=== PATIENT | female | born 1940 ===

== ENCOUNTER → 2017-12-25 13:13 | Outpatient (REF) | payer MEDICARE, SELFPAY ==
[2017-12-25 14:02] LABS: BUN Creatinine Ratio 27.5 (6-22); Blood Urea Nitrogen 66 mg/dL (7-17); Calcium 8.7 mg/dL (8.4-10.2); Carbon Dioxide 30 mmol/L (22-32); Chloride 102 mmol/L (98-107); Estimated Glomerular Filt Rate 19.5 mL/min (>60); Glucose 121 mg/dL (80-110); HEMOLYSIS 18 (0-50); Potassium 4.1 mmol/L (3.4-5.1); Sodium 143 mmol/L (137-145)
== END ==
LOC: LAB 13:13
PROVIDERS: Visit Provider Specialist
DX: N18.4 Chronic kidney disease, stage 4 (severe) (principal); D63.1 Anemia in chronic kidney disease
CPT/HCPCS: 80048

== ENCOUNTER → 2018-03-31 15:26 | Outpatient (REF) | payer MEDICARE, SELFPAY ==
[2018-03-31 16:18] LABS: Add Manual Diff / Slide Review NO; Basophils Percent Auto 0.5 % (0-2); Eosinophils Percent Auto 5.1 % (2-4); Hematocrit 27.2 % (36-46); Hemoglobin 8.7 g/dL (12.0-16.0); Lymphocytes Percent Auto 25.9 % (25-40); Mean Corpuscular HGB Conc 32.1 % (30-36); Mean Corpuscular Hemoglobin 29.5 PG (26-34); Mean Corpuscular Volume 91.7 fL (80-100); Monocytes Percent Auto 7.6 % (3-14); Neutrophils Absolute Auto 3200 /uL (3000-5900); Neutrophils Percent Auto 60.9 % (50-75); Platelet Count 220 X10^3/uL (150-400); Red Blood Cell Count 2.96 X10^6/uL (4.0-5.2); Red Cell Distribution Width 18.5 % (11.6-14.8); White Blood Cell Count 5.2 X10^3/uL (4.5-11.0)
[2018-03-31 16:45] LABS: HEMOLYSIS < 15 (0-50); Iron 51 ug/dL (37-170)
[2018-03-31 16:52] LABS: Alanine Aminotransferase 31 IU/L (9-52); Albumin 3.7 g/dL (3.5-5.0); Albumin Globulin Ratio 1.4 (1.0-2.8); Alkaline Phosphatase 89 U/L (38-126); Aspartate Aminotransferase 40 IU/L (14-36); BUN Creatinine Ratio 27.8 (6-22); Bilirubin Total 0.6 mg/dL (0.2-1.3); Blood Urea Nitrogen 64 mg/dL (7-17); C-Reactive Protein Quant 0.6 mg/dL (<1.0); Calcium 8.5 mg/dL (8.4-10.2); Carbon Dioxide 24 mmol/L (22-32); Chloride 105 mmol/L (98-107); Estimated Glomerular Filt Rate 20.5 mL/min (>60); Globulin 2.6 g/dL (1.7-4.1); Glucose 151 mg/dL (80-110); HEMOLYSIS < 15 (0-50); Potassium 4.2 mmol/L (3.4-5.1); Sodium 142 mmol/L (137-145); Total Protein 6.3 g/dL (6.3-8.2)
[2018-03-31 16:56] LABS: Percent Iron Saturation 22 % (15-50); Total Iron Binding Capacity 229 ug/dL (265-497); Transferrin 175 mg/dL (206-381)
[2018-03-31 17:17] LABS: Erythrocyte Sedimentation Rate 30 MM/HR (0-20)
== END ==
LOC: LAB 15:26
PROVIDERS: Visit Provider Specialist
DX: D63.1 Anemia in chronic kidney disease (principal); N18.4 Chronic kidney disease, stage 4 (severe)
CPT/HCPCS: 80053; 82728; 83540; 83550; 85025; 85651; 86140

== ENCOUNTER → 2018-04-02 14:12 | Outpatient (REF) | payer MEDICARE, SELFPAY ==
[2018-04-02 14:54] LABS: Occult Blood 1 Negative (Negative)
== END ==
LOC: LAB 14:12
PROVIDERS: Visit Provider Specialist
DX: D63.1 Anemia in chronic kidney disease (principal); N18.4 Chronic kidney disease, stage 4 (severe)
CPT/HCPCS: 82270

== ENCOUNTER → 2018-04-30 13:22 | Outpatient (REF) | payer MEDICARE, SELFPAY ==
[2018-04-30 13:54] LABS: Add Manual Diff / Slide Review NO; Basophils Percent Auto 0.5 % (0-2); Eosinophils Percent Auto 7.2 % (2-4); Hematocrit 28.2 % (36-46); Hemoglobin 9.3 g/dL (12.0-16.0); Lymphocytes Percent Auto 20.4 % (25-40); Mean Corpuscular HGB Conc 32.9 % (30-36); Mean Corpuscular Hemoglobin 29.6 PG (26-34); Mean Corpuscular Volume 89.9 fL (80-100); Monocytes Percent Auto 8.2 % (3-14); Neutrophils Absolute Auto 4000 /uL (1500-7000); Neutrophils Percent Auto 63.7 % (50-75); Platelet Count 256 X10^3/uL (150-400); Red Blood Cell Count 3.14 X10^6/uL (4.0-5.2); White Blood Cell Count 6.3 X10^3/uL (4.5-11.0)
[2018-04-30 13:59] LABS: HEMOLYSIS < 15 (0-50); Iron 46 ug/dL (37-170)
[2018-04-30 14:00] LABS: Alanine Aminotransferase 26 IU/L (9-52); Albumin 3.8 g/dL (3.5-5.0); Albumin Globulin Ratio 1.4 (1.0-2.8); Alkaline Phosphatase 98 U/L (38-126); Aspartate Aminotransferase 39 IU/L (14-36); BUN Creatinine Ratio 28.4 (6-22); Bilirubin Total 0.7 mg/dL (0.2-1.3); Blood Urea Nitrogen 71 mg/dL (7-17); Calcium 8.7 mg/dL (8.4-10.2); Carbon Dioxide 29 mmol/L (22-32); Chloride 98 mmol/L (98-107); Estimated Glomerular Filt Rate 18.6 mL/min (>60); Globulin 2.7 g/dL (1.7-4.1); Glucose 242 mg/dL (80-110); HEMOLYSIS 20 (0-50); Potassium 4.4 mmol/L (3.4-5.1); Sodium 140 mmol/L (137-145); Total Protein 6.5 g/dL (6.3-8.2)
[2018-04-30 14:06] LABS: High Sensitivity CRP - Cardiac 6.6 mg/L (1.0-3.0)
[2018-04-30 14:09] LABS: Percent Iron Saturation 20 % (15-50); Total Iron Binding Capacity 232 ug/dL (265-497); Transferrin 175 mg/dL (206-381)
[2018-04-30 14:23] LABS: Erythrocyte Sedimentation Rate 24 MM/HR (0-20)
== END ==
LOC: LAB 13:22
PROVIDERS: Visit Provider Preventive Medicine Occupational Medicine
DX: D63.1 Anemia in chronic kidney disease (principal); E11.621 Type 2 diabetes mellitus with foot ulcer; I25.9 Chronic ischemic heart disease, unspecified
CPT/HCPCS: 36415; 80053; 83540; 83550; 85025; 85651; 86140

== ENCOUNTER → 2018-05-07 13:36 | Outpatient (REF) | payer MEDICARE, SELFPAY ==
[2018-05-07 14:27] LABS: BUN Creatinine Ratio 29.3 (6-22); Blood Urea Nitrogen 82 mg/dL (7-17); Calcium 9.2 mg/dL (8.4-10.2); Carbon Dioxide 30 mmol/L (22-32); Chloride 95 mmol/L (98-107); Estimated Glomerular Filt Rate 16.3 mL/min (>60); Glucose 208 mg/dL (80-110); HEMOLYSIS < 15 (0-50); Potassium 4.4 mmol/L (3.4-5.1); Sodium 139 mmol/L (137-145)
== END ==
LOC: LAB 13:36
PROVIDERS: Visit Provider Specialist
DX: R63.5 Abnormal weight gain (principal)
CPT/HCPCS: 36415; 80048

== ENCOUNTER → 2018-05-12 14:15 | Outpatient (REF) | payer MEDICARE, SELFPAY ==
[2018-05-12 14:30] LABS: Add Manual Diff / Slide Review NO; Basophils Percent Auto 0.9 % (0-2); Eosinophils Percent Auto 7.4 % (2-4); Hematocrit 30.5 % (36-46); Hemoglobin 9.9 g/dL (12.0-16.0); Lymphocytes Percent Auto 21.5 % (25-40); Mean Corpuscular HGB Conc 32.4 % (30-36); Mean Corpuscular Hemoglobin 28.9 PG (26-34); Mean Corpuscular Volume 89.1 fL (80-100); Monocytes Percent Auto 8.1 % (3-14); Neutrophils Absolute Auto 3900 /uL (1500-7000); Neutrophils Percent Auto 62.1 % (50-75); Platelet Count 280 X10^3/uL (150-400); Red Blood Cell Count 3.42 X10^6/uL (4.0-5.2); Red Cell Distribution Width 16.6 % (11.6-14.8); White Blood Cell Count 6.2 X10^3/uL (4.5-11.0)
[2018-05-12 14:49] LABS: HEMOLYSIS 17 (0-50); Iron 58 ug/dL (37-170)
[2018-05-12 14:52] LABS: Alanine Aminotransferase 24 IU/L (9-52); Albumin Globulin Ratio 1.4 (1.0-2.8); Alkaline Phosphatase 83 U/L (38-126); Aspartate Aminotransferase 39 IU/L (14-36); BUN Creatinine Ratio 32.3 (6-22); Bilirubin Total 0.9 mg/dL (0.2-1.3); Blood Urea Nitrogen 84 mg/dL (7-17); Calcium 9.2 mg/dL (8.4-10.2); Carbon Dioxide 31 mmol/L (22-32); Chloride 94 mmol/L (98-107); Estimated Glomerular Filt Rate 17.8 mL/min (>60); Globulin 2.9 g/dL (1.7-4.1); Glucose 181 mg/dL (80-110); HEMOLYSIS 17 (0-50); Potassium 4.4 mmol/L (3.4-5.1); Sodium 137 mmol/L (137-145); Total Protein 6.9 g/dL (6.3-8.2)
[2018-05-12 14:59] LABS: Percent Iron Saturation 23 % (15-50); Total Iron Binding Capacity 247 ug/dL (265-497); Transferrin 192 mg/dL (206-381)
[2018-05-12 15:00] LABS: Vitamin D 25 Hydroxy (D3) 57.5 ng/mL (30.0-100.0)
[2018-05-12 15:56] LABS: Folate > 20.0 ng/mL (2.76-20.0)
[2018-05-14 13:05] LABS: Parathyroid Hormone Int 56 pg/mL (14-64)
== END ==
LOC: LAB 14:15
PROVIDERS: Visit Provider Specialist
DX: N18.4 Chronic kidney disease, stage 4 (severe) (principal); D63.1 Anemia in chronic kidney disease
CPT/HCPCS: 36415; 80053; 82306; 82728; 82746; 83540; 83550; 83970; 85025